=== PATIENT | male | born 1965 ===

== ENCOUNTER 2018-12-01 04:58 | Inpatient (IN) | payer MEDICAID ==
[2018-12-01 04:58] VITALS: BMI 38.7
[2018-12-01 05:12] VITALS: O2SAT 97
--- NOTE | 2018-12-01 05:14 | ED PDOC ---
Psych Transfer Clearance - Clearance Statement Clearance Statement: Reviewed vital signs, lab results and transfer papers. Patient clinically stable for psychiatric admission.
[2018-12-01] MEDS ORDERED: DiphenhydrAMINE 50 mg/ml Inj IM PRN (05:37)
[2018-12-01] MEDS ORDERED: Alum-Mag Hydrox-Simethicone Susp (30 mL) PO PRN (05:37)
[2018-12-01] MEDS ORDERED: Magnesium Hydroxide Susp 30 ml UD PO PRN (05:37)
--- NOTE | 2018-12-01 05:41 | PCM.BM ---
<Jose Bustillo - Last Filed: 12/01/18 05:56> Treatment Plan Problems - Problems identified on initial assessmt Self Harm Date Initiated: 12/01/18 Time Initiated: 05:39 Assessment reference: NA Status: Active Priority: 1 Suicidal Ideation Date Initiated: 12/01/18 Time Initiated: 05:39 Assessment reference: NA Status: Active Priority: 2 Altered Thought Process Date Initiated: 12/01/18 Time Initiated: 05:39 Assessment reference: NA Status: Active Priority: 3 Ineffective Coping Date Initiated: 12/01/18 Time Initiated: 05:39 Assessment reference: NA Status: Active Priority: 4 Social Isolation Date Initiated: 12/01/18 Time Initiated: 05:40 Assessment reference: NA Status: Active Priority: 5 Hopelessness/Helplessness Date Initiated: 12/01/18 Time Initiated: 05:40 Assessment reference: NA Status: Active Priority: 6 Feelings of Worthlessness Date Initiated: 12/01/18 Time Initiated: 05:41 Assessment reference: NA Status: Active Priority: 7 Auditory/Command Hallucinations Date Initiated: 12/01/18 Time Initiated: 05:56 Assessment reference: NA Status: Active Priority: 8 Treatment assets and liabiliti Patient Assests: adapts well, cooperative, self-reliant, ADL independent, negotiates basic needs Patient Liabilities: live alone, physical pain, substance abuse - Milieu Protocol Maintain good personal hygiene: daily Encourage regular showers, daily Remind patient to perform daily oral care, daily Assist patient to perform ADL's Conduct patient checks and document Observation sheet: Q15 minutes Maintain personal safety: every shift Educate patient to report safety concerns to staff, every shift Monitor environment for contraband/sharps Medication safety: Monitor for expected outcome, potential side effects: every shift, Assess barriers to learning: every shift, Assess readiness for medication education: every shift <Peggy Phillips - Last Filed: 12/01/18 11:26> - Diagnosis (1) Schizoaffective disorder Status: Acute Interventions: Medication management, Individual and group therapy, Psychoeducation 12/01/18 11:26 <Jasmina Figueroa - Last Filed: 12/02/18 16:08> Family Contact Family involvement: Famliy/SO not involved - Outside Agency [facility] ICMS Care involvment: Information-sharing Agency contact name: Ely Hammond - case management social workerinsurance risk manager contact number: [phone] [facility] Care involvment: Information-sharing Agency contact number: [phone] - Goals for Treatment Patient goals for treatment: Pt will improve overall mood. Pt will be free of suicide thoughts and A/V hallucinations. Pt will attend clinical and activity groups. Pt will be compliant with prescribed medications. Pt will follow unit rules and regulations. Discharge/Continuing Care - Education Needs Education Needs: Family Medication, Family Diagnosis/Disease Process, Family Coping Skills, Family Community resources, Family Uses of Medical Equipment, Family Health Practices/Safety, Family Personal Hygiene/Grooming, Family Aftercare Safety Plan - Discharge Discharge Criteria: Tolerates medication w/o severe side effects, Free of Suicidal thoughts, Normal sleep pattern, Ability to care for self, Reduction of target symptoms, Other (Free of Hallucinations) Discharge to:: Home - Additional Comments 12/02/18 15:56 Pt seen and discussed in team meeting. Reason for admission reviewed and discussed. Pt reported he was admitted because "The devil is telling me I'm shit and to kill myself." Pt reported he has been "thinking a lot" but refuses to elaborate. Pt reported medication compliance; however, it is questionable. Pt reported he does not recall the name of the medications that he is prescribed. Pt reported he is linked to [facility] and his counter caser is Ely Manish. Pt reported being linked to OPD at [facility] but cannot recall the name of the psychiatrist. Pt reported that he also has a certified juvenile probation officer in [facility] that must be contacted and informed of admission. Pt reported that he visits with the wood tank builder every Sunday and if he misses his appearance there will be a warrant out for his arrest. Pt cantrell snot recall the name of his certified juvenile probation officer, but reports her first name is Kristin. Pt provided customs entry writer with verbal authorization to call his certified juvenile probation officer and inform agency of his recent admission. Current medications reviewed and discussed. Pt's social and medical issues reviewed and discussed. Tx plan reviewed and discussed, pt verbalized agreement. Sw to continue to follow case. SW to contact community providers and obtain collateral information. - Treatment Team Participation Discussed with Family/SO: No Was Patient/Family/SO present at Treatment Team Meeting: Yes
[2018-12-01 07:10] LABS: ALB/GLOB RATIO 1.3 (1.0-2.1); ALBUMIN 4.1 g/dL (3.5-5.0); ALT/SGPT 21 U/L (21-72); AST/SGOT 15 U/L (17-59); BLOOD UREA NITROGEN 10 mg/dl (9-20); CALCIUM 9.2 mg/dL (8.4-10.2); GFR NON-AFRICAN AMERICAN > 60
[2018-12-01 07:21] LABS: BASO # 0.1 K/uL (0.0-0.2); BASO % 0.8 % (0.0-2.0); EOS # 0.1 K/uL (0.0-0.7); EOS % 1.3 % (0.0-4.0); HEMOGLOBIN 14.6 g/dL (12.0-18.0); LYMPH # 1.5 K/uL (1.0-4.3); LYMPH % 20.5 % (20.0-40.0); MEAN CORPUSCULAR HEMOGLOBIN 29.9 pg (27.0-31.0); MEAN CORPUSCULAR HGB CONC 33.2 g/dL (33.0-37.0); MEAN PLATELET VOLUME 8.8 fl (7.2-11.7); MONO # 0.6 K/uL (0.0-0.8); MONO % 8.7 % (0.0-10.0); NEUT % 68.7 % (50.0-75.0); RBC 4.88 Mil/uL (4.40-5.90); RED CELL DISTRIBUTION WIDTH 14.6 % (11.5-14.5); WHITE BLOOD COUNT 7.2 K/uL (4.8-10.8)
[2018-12-01 07:35] LABS: HDL CHOLESTEROL 40 MG/DL (30-70)
[2018-12-01 07:46] LABS: LDL CHOLESTEROL 83 mg/dL (0-129)
--- NOTE | 2018-12-01 11:10 | PCM.PSYCH ---
Initial Psychiatric Evaluation - Initial Psychiatric Evaluation Type of Admission: Voluntary Legal Status: Capacity Chief Complaint (in patient's own words): "The devil is telling me to kill myself." Patient's Reaction to Hospitalization: HPI: 53 yo male w/ h/o schizophrenia vs bipolar disorder w/ psychotic features, presents w/ CAH of the devil telling him to kill himself w/ plan to hang himself. He reports compliance with medications, but he is unable to state what medications he takes and it is unclear if he has actually been taking his medications as he dispenses them to himself. He reports feeling depressed and anxious w/ poor self care, +sleep/appetite disturbances. Stressors include his sister dying 2 weeks ago. PPHx: >8 psychiatric hospitalizations, most recent in [facility] in October 2018. Most recently treated with Celexa, Prolixin, Seroquel, Neurontin, Cogentin; h/o [place]; [facility] insurance case manager Ely Hammond as per chart. PMHx: 2 herniated disks ALL: NKDA SHx: Lives in transitional housing, smokes 2 ppd, denies drugs/etoh; h/o incarceration for burglary; h/o opioid/alcohol abuse, in remission Current Medications: Active Medications Generic Name Dose Route Start Last Admin Trade Name Freq PRN Reason Stop Dose Admin Acetaminophen 650 mg 12/01/18 05:37 Tylenol 325mg Tab PO Q4 PRN pain or headache 4-7 Al Hydrox/Mg Hydrox/Simethicone 30 ml 12/01/18 05:37 Maalox Plus 30 Ml PO Q4 PRN Dyspepsia Diphenhydramine HCl 50 mg 12/01/18 05:37 Benadryl PO HS PRN Extrapyramidal Symptoms Diphenhydramine HCl 50 mg 12/01/18 05:37 Benadryl IM Q6 PRN Extrapyramidal S/S Unable PO Haloperidol 5 mg 12/01/18 05:37 Haldol PO Q4 PRN Agitation Haloperidol Lactate 5 mg 12/01/18 05:37 Haldol IM Q4 PRN Agitation, Unable to Take PO Lorazepam 2 mg 12/01/18 05:37 Ativan IM Q6 PRN Anxiety/Agitation,Unable PO Lorazepam 2 mg 12/01/18 05:37 Ativan PO Q6 PRN Anxiety/Agitation Magnesium Hydroxide 30 ml 12/01/18 05:37 Milk Of Magnesia PO HS PRN Constipation Past Psychiatric History - Past Psychiatric History Previous Treatment History: Inpatient Pertinent Medical Hx (Current Medical&Sleep Prob, Allergies): Allergies Allergy/AdvReac Type Severity Reaction Status Date / Time No Known Allergies Allergy Verified 11/12/18 10:08 QUEtiapine [SEROquel] 400 mg PO HS 10/17/17 Benztropine [Cogentin] 1 mg PO HS #30 tab 10/23/17 Citalopram Hydrobromide [Celexa] 40 mg PO DAILY #30 tablet 10/23/17 fluPHENAZine [Prolixin] 10 mg PO HS #30 tab 10/23/17 Benztropine [Cogentin] 1 mg PO QPM #30 tab 11/16/17 traZODone [Desyrel] 100 mg PO HS PRN #30 tab 11/16/17 Benztropine [Cogentin] 1 mg PO BID #60 tab 11/21/18 Citalopram [celEXA] 40 mg PO DAILY #30 tab 11/21/18 Gabapentin [Neurontin] 300 mg PO BID #60 cap 11/21/18 QUEtiapine [Seroquel] 100 mg PO HS #30 tab 11/21/18 fluPHENAZine [Prolixin] 10 mg PO BID #60 tab 11/21/18 Review of Systems - Psychiatric Psychiatric: As Per HPI, Abnormal Sleep Pattern, Anhedonia, Anxiety, Auditory Hallucinations, Change in Appetite, Depression, Difficulty Concentrating, Hallucinations, Hopelessness, Irritability, Memory Loss, Suicidal Ideation Mental Status Examination - Personal Presentation Personal Presentation: Looks stated age - Affect Affect: Constricted, Depressed - Motor Activity Motor Activity: Calm - Reliability in Providing Information Reliability in Providing Information: Poor, due to altered mood - Speech Speech: Coherent - Mood Mood: Depressed, Anxious - Formal Thought Process Formal Thought Process: Hallucinations - Hallucinations/Delusions Hallucinations: Auditory - Obsessions/Compulsions Obsessions: No Compulsions: No - Cognitive Functions Orientation: Person, Place, Situation, Time Sensorium: Alert Judgement: Imparied, as evidence by: Poor judgement, Imparied, as evidence by: Lack of insight into illness - Risk Risk: Suicidal, Diminished functioning - Strength & Assets Inventory Strength & Assets Inventory: Cooperative - Limitations Limitations: Other (Poverty) DSM 5 DX - DSM 5 DSM 5 Diagnosis: Schizoaffective Disorder - Recommended/Plan of Treatment Treatment Recommendations and Plan of Treatment: Schizoaffective Disorder -Admit to psychiatry unit -Restart Britney Kiran Celexa -Obtain collateral history -Individual and group therapy -Patient declined nicotine patch -Psychoeducation -Medicine consult -Disposition planning Projected ELOS: 5-10 days Discharge Plan and Discharge Criteria: Discharge when patient is psychiatrically stable - Smoking Cessation Smoking Cessation Initiated: No Reason for not providing: Patient declined
--- NOTE | 2018-12-01 15:46 | CP.PCM.CON ---
History of Present Illness - History of Present Illness History of Present Illness: 53 yo male with history of schizophrenia admitted to [facility] because of suicidal ideation. Review of Systems - Review of Systems All systems: reviewed and no additional remarkable complaints except (aside from those mentioned above, 12 point system review were negative by) Past Patient History - Tetanus Immunizations Tetanus Immunization: Unknown - Past Social History Smoking Status: Heavy Smoker > 10 Cigarettes Daily Chewing Tobacco Use: No Cigar Use: No Alcohol: None Drugs: Denies - CARDIAC Hx Hypertension: No - PULMONARY Hx Tuberculosis: No (Patient denied.) - NEUROLOGICAL Hx Seizures: No - HEMATOLOGICAL/ONCOLOGICAL Hx Human Immunodeficiency Virus (HIV): No - MUSCULOSKELETAL/RHEUMATOLOGICAL Hx Musculoskeletal Disorders: Yes Hx Falls: No Hx Herniated Disk: Yes - GENITOURINARY/GYNECOLOGICAL Hx Sexually Transmitted Disorders: No - PSYCHIATRIC Hx Anxiety: Yes Hx Bipolar Disorder: Yes Hx Depression: Yes Hx Schizophrenia: Yes Hx Substance Use: Yes (PERCOCET) - SURGICAL HISTORY Hx Surgeries: No - ANESTHESIA Hx Anesthesia: No Meds Allergies/Adverse Reactions: Allergies Allergy/AdvReac Type Severity Reaction Status Date / Time No Known Allergies Allergy Verified 11/12/18 10:08 - Medications Medications: Current Medications Acetaminophen (Tylenol 325mg Tab) 650 mg PO Q4 PRN PRN Reason: pain or headache 4-7 Al Hydrox/Mg Hydrox/Simethicone (Maalox Plus 30 Ml) 30 ml PO Q4 PRN PRN Reason: Dyspepsia Benztropine Mesylate (Cogentin) 1 mg PO Q12 [facility] Last Admin: 12/01/18 13:39 Dose: 1 mg Citalopram Hydrobromide (Celexa) 40 mg PO DAILY [facility] Last Admin: 12/01/18 13:41 Dose: 40 mg Diphenhydramine HCl (Benadryl) 50 mg PO HS PRN PRN Reason: Extrapyramidal Symptoms Diphenhydramine HCl (Benadryl) 50 mg IM Q6 PRN PRN Reason: Extrapyramidal S/S Unable PO Fluphenazine HCl (Prolixin) 10 mg PO Q12 [facility] Last Admin: 12/01/18 13:40 Dose: 10 mg Gabapentin (Neurontin) 300 mg PO BID [facility] Haloperidol (Haldol) 5 mg PO Q4 PRN PRN Reason: Agitation Haloperidol Lactate (Haldol) 5 mg IM Q4 PRN PRN Reason: Agitation, Unable to Take PO Lorazepam (Ativan) 2 mg IM Q6 PRN PRN Reason: Anxiety/Agitation,Unable PO Lorazepam (Ativan) 2 mg PO Q6 PRN PRN Reason: Anxiety/Agitation Magnesium Hydroxide (Milk Of Magnesia) 30 ml PO HS PRN PRN Reason: Constipation Physical Exam - Constitutional Appears: No Acute Distress - Head Exam Head Exam: ATRAUMATIC - Eye Exam Eye Exam: absent: Scleral icterus - ENT Exam ENT Exam: Mucous Membranes Moist - Neck Exam Neck exam: Negative for: Meningismus - Respiratory Exam Respiratory Exam: absent: Rales, Rhonchi, Wheezes, Respiratory Distress - Cardiovascular Exam Cardiovascular Exam: REGULAR RHYTHM, +S1, +S2 - GI/Abdominal Exam GI & Abdominal Exam: Soft. absent: Tenderness - Rectal Exam Rectal Exam: Deferred - Neurological Exam Neurological exam: Alert, Oriented x3 - Psychiatric Exam Psychiatric exam: Normal Affect - Skin Skin Exam: Dry, Intact Results - Vital Signs Recent Vital Signs: Last Vital Signs Temp 97.8 F 12/01/18 15:25 Pulse 74 12/01/18 15:25 Resp 20 12/01/18 15:25 BP 123/79 12/01/18 15:25 Pulse Ox 97 12/01/18 05:10 - Labs Result Diagrams: 12/01/18 06:35 12/01/18 06:35 Labs: Laboratory Results - last 24 hr 12/01/18 12/01/18 12/01/18 06:35 06:35 06:35 WBC 7.2 RBC 4.88 Hgb 14.6 Hct 44.0 MCV 90.0 MCH 29.9 MCHC 33.2 RDW 14.6 H Plt Count 224 MPV 8.8 Neut % (Auto) 68.7 Lymph % (Auto) 20.5 Sebastian % (Auto) 8.7 Eos % (Auto) 1.3 Baso % (Auto) 0.8 Neut # (Auto) 5.0 Lymph # (Auto) 1.5 Sebastian # (Auto) 0.6 Eos # (Auto) 0.1 Baso # (Auto) 0.1 Sodium Potassium Chloride Carbon Dioxide Anion Gap BUN Creatinine Est GFR ( Amer) Est GFR (Non-Af Amer) Random Glucose Hemoglobin A1c 5.9 Calcium Total Bilirubin AST ALT Alkaline Phosphatase Total Protein Albumin Globulin Albumin/Globulin Ratio Triglycerides 111 Cholesterol 150 LDL Cholesterol Direct 83 HDL Cholesterol 40 Thyroxine (T4) TSH 3rd Generation 12/01/18 06:35 WBC RBC Hgb Hct MCV MCH MCHC RDW Plt Count MPV Neut % (Auto) Lymph % (Auto) Sebastian % (Auto) Eos % (Auto) Baso % (Auto) Neut # (Auto) Lymph # (Auto) Sebastian # (Auto) Eos # (Auto) Baso # (Auto) Sodium 139 Potassium 3.7 Chloride 103 Carbon Dioxide 26 Anion Gap 14 BUN 10 Creatinine 0.9 Est GFR ( Amer) > 60 Est GFR (Non-Af Amer) > 60 Random Glucose 115 H Hemoglobin A1c Calcium 9.2 Total Bilirubin 0.7 AST 15 L ALT 21 Alkaline Phosphatase 129 H Total Protein 7.3 Albumin 4.1 Globulin 3.2 Albumin/Globulin Ratio 1.3 Triglycerides Cholesterol LDL Cholesterol Direct HDL Cholesterol Thyroxine (T4) 8.83 TSH 3rd Generation 1.66 Assessment & Plan (1) Suicidal ideations Status: Acute Comment: psyche is managing
--- NOTE | 2018-12-02 11:05 | PCM.PYCHPN ---
Psychiatric Progress Note - Psychiatric Progress Note Patient seen today, length of contact: Pt evaluated, case discussed w/ team, chart reviewed Patient Chief Complaint: Depression Problems Identified/Issues Discussed: Patient continues to report hearing AH of the devil, telling him "you are shit" and telling him to hang himself. He is anxious and distressed by these voices. Patient reports improved sleep/appetite. No adverse effects to medications reported. Medication Change: No Medical Record Reviewed: Yes Consults ordered or reviewed: Medicine consult Mental Status Examination - Cognitive Function Orientation: Person, Place, Situation, Time Decription of patient's judgement and insights: Fair I/J - Mood Mood: Depressed, Anxious - Affect Affect: Constricted, Depressed - Formal Thought Process Formal Thought Process: Hallucinations Psychotic Thoughts and Behaviors: +AH - Suicidal Ideation Suicidal Ideation: Yes Plan: +CAH to kill himself - Homicidal Ideation Homicidal Ideation: No Goal/Treatment Plan - Goal/Treatment Plan Need for Continued Stay: Remain at risks for inpatient hospitalization, Severe depression anxiety Progress Toward Problem(s) and Goals/Treatment Plan: Schizoaffective Disorder -Continue Prolixin, Cogentin, Celexa -Obtain collateral history -Individual and group therapy -Patient declined nicotine patch -Psychoeducation -Medicine consult -Disposition planning
--- NOTE | 2018-12-03 10:38 | PCM.PYCHPN ---
Psychiatric Progress Note - Psychiatric Progress Note Patient seen today, length of contact: Pt evaluated, case discussed w/ team, chart reviewed Patient Chief Complaint: Depression Problems Identified/Issues Discussed: Patient continues to feel acutely depressed and anxious, but denies acute CAH to kill himself (last heard yesterday). He is able to contract for safety at this time. Psychoeducation provided on the importance of compliance with medications. He denies acute adverse effects to medications. Medication Change: No Medical Record Reviewed: Yes Consults ordered or reviewed: Medicine consult Mental Status Examination - Cognitive Function Orientation: Person, Place, Situation, Time Memory: Intact Decription of patient's judgement and insights: Fair I/J - Mood Mood: Depressed, Anxious - Affect Affect: Constricted, Depressed - Formal Thought Process Psychotic Thoughts and Behaviors: Denies acute AH/CAH, last heard yesterday - Suicidal Ideation Suicidal Ideation: No - Homicidal Ideation Homicidal Ideation: No Goal/Treatment Plan - Goal/Treatment Plan Need for Continued Stay: Remain at risks for inpatient hospitalization, Severe depression anxiety Progress Toward Problem(s) and Goals/Treatment Plan: Schizoaffective Disorder -Continue Prolixin, Cogentin, Celexa -Obtain collateral history -Individual and group therapy -Patient declined nicotine patch -Psychoeducation -Medicine consult -Disposition planning
--- NOTE | 2018-12-04 08:52 | PCM.PYCHPN ---
Psychiatric Progress Note - Psychiatric Progress Note Patient seen today, length of contact: Pt evaluated, case discussed w/ team, chart reviewed Patient Chief Complaint: Depression Problems Identified/Issues Discussed: Patient denies acute AH or CAH to kill himself. He no longer hears that voices of the devil. He denies acute suicidal ideation/plan/intent. He continues to report feeling depressed and anxious. Psychoeducation provided on the importance of compliance with medications. He denies acute adverse effects to medications. Medication Change: No Medical Record Reviewed: Yes Consults ordered or reviewed: Medicine consult Mental Status Examination - Cognitive Function Orientation: Person, Place, Situation, Time Memory: Intact Decription of patient's judgement and insights: Fair I/J - Mood Mood: Depressed, Anxious - Affect Affect: Constricted, Depressed - Formal Thought Process Formal Thought Process: No Impairment Psychotic Thoughts and Behaviors: Denies acute AH/VH/paranoia - Suicidal Ideation Suicidal Ideation: No - Homicidal Ideation Homicidal Ideation: No Goal/Treatment Plan - Goal/Treatment Plan Need for Continued Stay: Remain at risks for inpatient hospitalization, Severe depression anxiety Progress Toward Problem(s) and Goals/Treatment Plan: Schizoaffective Disorder -Continue Prolixin, Cogentin, Celexa -Individual and group therapy -Patient declined nicotine patch -Psychoeducation -Medicine consult -Disposition planning Estimated Date of D/C: 12/06/18
--- NOTE | 2018-12-05 08:33 | PCM.PYCHPN ---
Psychiatric Progress Note - Psychiatric Progress Note Patient seen today, length of contact: Pt evaluated, case discussed w/ team, chart reviewed Patient Chief Complaint: Depression/Anxiety; now improving Problems Identified/Issues Discussed: Patient reports that his mood is improving. He feels less anxious and depressed. No acute AH/CAH/VH/SI/HI/paranoia/delusions. We discussed coping strategies to deal with his stress. Psychoeducation provided on the importance of compliance with medications. He denies acute adverse effects to medications. Medication Change: No Medical Record Reviewed: Yes Consults ordered or reviewed: Medicine consult Mental Status Examination - Cognitive Function Orientation: Person, Place, Situation, Time Memory: Intact Decription of patient's judgement and insights: Fair I/J - Mood Mood: Depressed, Anxious - Affect Affect: Constricted - Speech Speech: Appropriate - Formal Thought Process Formal Thought Process: No Impairment Psychotic Thoughts and Behaviors: Denies acute AH/VH/paranoia - Suicidal Ideation Suicidal Ideation: No - Homicidal Ideation Homicidal Ideation: No Goal/Treatment Plan - Goal/Treatment Plan Need for Continued Stay: Remain at risks for inpatient hospitalization Progress Toward Problem(s) and Goals/Treatment Plan: Schizoaffective Disorder; patient is improving clinically, will likely discharge tomorrow if patient continues to improve -Continue Prolixin, Cogentin, Celexa -Patient not agreeable to a long acting injection at this time -Individual and group therapy -Patient declined nicotine patch -Psychoeducation -Medicine consult -Disposition planning Estimated Date of D/C: 12/06/18
[2018-12-06 05:58] VITALS: BP 105/71; PULSE 70; RESP 18; TEMP 97.2
--- NOTE | 2018-12-06 08:21 | PCM.PYCHDC ---
Mental Status Examination - Mental Status Examination Orientation: Person, Place, Situation, Time Memory: Intact Mood: Neutral Affect: Broad Speech: Appropriate Attention: WNL Concentration: WNL Formal Thought Process: No Impairment Description of patient's judgement and insight: Fair I/J Psychotic Thoughts and Behaviors: Denies acute AH/VH/paranoia Suicidal Ideation: No Current Homicidal Ideation?: No Discharge Summary - Discharge Note Reason for Hospitalization: HPI: 53 yo male w/ h/o schizophrenia vs bipolar disorder w/ psychotic features, presents w/ [facility] of the devil telling him to kill himself w/ plan to hang himself. He reports compliance with medications, but he is unable to state what medications he takes and it is unclear if he has actually been taking his medications as he dispenses them to himself. He reports feeling depressed and anxious w/ poor self care, +sleep/appetite disturbances. Stressors include his sister dying 2 weeks ago. PPHx: >8 psychiatric hospitalizations, most recent in [facility] in October 2018. Most recently treated with Celexa, Prolixin, Seroquel, Neurontin, Cogentin; h/o suicide [place] train tracks; [facility] family caseworker Ely Hammond as per chart. PMHx: 2 herniated disks ALL: NKDA SHx: Lives in transitional housing, smokes 2 ppd, denies drugs/etoh; h/o incarceration for burglary; h/o opioid/alcohol abuse, in remission Consultations:: List each consultation separately and include: 1. Reason for request. 2. Findings. 3. Follow-up Consultations: Medicine consult Summary of Hospital Course include:: 1. Description of specific treatment plan utilized for patients during their course of treatmen. 2. Summarize the time- course for resolution of acute symptoms and/or regressed behaviors. 3. Describe issues identified and worked on during hospitalization. 4. Describe medication utilized. 5. Describe medical problems identified and treated. 6. Reassessment of suicide risk Summary of Hospital Course: Patient was admitted to the psychiatry unit. Individual and group therapy were provided. Patient was stabilized on Celexa 40 mg PO Daily, Prolixin 10 mg PO Q12, Cogentin 1 mg PO Q12 and Gabapentin 300 mg PO BID. He denies acute depression/anxiety/AH/VH/paranoia/delusions/SI/HI. He is currently psychiatrically stable for discharge with outpatient follow-up. Psychoeducation provided on the importance of compliance with treatment and medications. - Diagnosis (1) Schizoaffective disorder Current Visit: Yes Status: Chronic - Final Diagnosis (DSM 5) Condition upon Discharge: STABLE DSM 5: Schizoaffective Disorder Disposition: HOME/ ROUTINE Follow-up Treatment Plan: Schizoaffective Disorder -Continue Prolixin, Cogentin, Celexa, Gabapentin -Patient not agreeable to a long acting injection at this time -Individual and group therapy -Patient declined nicotine patch -Discharge with outpatient psychiatric follow-up Prescriptions/Medication Reconciliation: Benztropine [Cogentin] 1 mg PO Q12 #60 tab Citalopram [celEXA] 40 mg PO DAILY #60 tab fluPHENAZine [Prolixin] 10 mg PO Q12 #60 tab Gabapentin [Neurontin] 300 mg PO BID #60 cap - Smoking Cessation Smoking Cessation Medication prescribed: No Reason for not providing: Patient declined - Antipsychotic Medications Pt discharged on 2 or more routine antipsychotic medications: No
[2018-12-06] MEDS ORDERED: Multivitamin With Minerals Tab PO SCH (11:30)
== END 2018-12-06 12:20 | disposition home or self-care (01) | DRG 430 ==
LOC: H.ER 04:58 → H.STEP 05:13
PROVIDERS: ADMIT Psychiatry & Neurology Psychiatry; ATTEND Psychiatry & Neurology Psychiatry
PROC: GZHZZZZ Group Psychotherapy (ICD-10-PCS; principal; 2018-12-01)
DX: F25.9 Schizoaffective disorder, unspecified (principal); F17.210 Nicotine dependence, cigarettes, uncomplicated; R45.851 Suicidal ideations